=== PATIENT | female | born 1950 | race Caucasian/White ===

== ENCOUNTER 2017-06-20 19:25 | Emergency (ER) | payer MEDICARE, OTHER ==
[2017-06-20] MEDS ORDERED: ALBUTEROL NEB SOL 2.5MG/3ML 1 VIAL SOL NEB ONE (19:57)
[2017-06-20 20:05] VITALS: TEMP 99.8
[2017-06-20 20:14] LABS: BASOPHILS % (AUTO) 1 % (0-3); EOSINOPHILS % (AUTO) 0 % (0-9); HEMATOCRIT 33 % (35-47); MEAN CORPUSCULAR HGB CONC 36.5 gm/dl (32.0-36.0); MEAN CORPUSCULAR VOLUME 87 fL (81-99); MONOCYTES % (AUTO) 8.7 % (0-12); NEUTROPHILS % (AUTO) 69.5 % (37-80)
[2017-06-20] MEDS ORDERED: SODIUM CHLORIDE 0.9% 100 ML SOL IV SCH (20:15)
[2017-06-20] MEDS ORDERED: GUAIFENESIN 200 MG/10 ML SOL PO ONE (20:24)
[2017-06-20 20:31] LABS: CALCIUM 8.8 mg/dl (8.5-10.1); GLOM FILT RATE 53 mL/min (>60); MAGNESIUM 1.3 mg/dl (1.8-2.4); POTASSIUM 3.9 mMol/L (3.5-5.1); SODIUM 137 mMol/L (136-145)
[2017-06-20] MEDS ORDERED: ALBUTEROL NEB SOL 2.5MG/3ML 1 VIAL SOL ONE (20:37)
[2017-06-20] MEDS ORDERED: DM/GUAIFENESIN SYRUP 10 ML SYRP ONE (20:41)
[2017-06-20 23:26] VITALS: BP 120/72; PULSE 98; RESP 16; O2SAT 95
== END 2017-06-20 22:08 | disposition home or self-care (01) | DRG 153 ==
LOC: ED 19:25
DX: J06.9 Acute upper respiratory infection, unspecified (principal); E86.0 Dehydration; R52 Pain, unspecified; R00.0 Tachycardia, unspecified
CPT/HCPCS: 71020; 80048; 83735; 84100; 84484; 85025; 87804; 99284; J7603

== ENCOUNTER 2018-09-14 05:24 | Emergency (ER) | payer MEDICARE, BC ==
[2018-09-14 05:31] VITALS: TEMP 96.7
[2018-09-14] MEDS ORDERED: ONDANSETRON 4 MG ODT BU ONE (05:59)
[2018-09-14] MEDS ORDERED: APAP/HYDROCODONE 1 EACH TABLET PO ONE ×2 (06:00→09:42)
[2018-09-14] MEDS ORDERED: ONDANSETRON 4 MG ODT ONE (06:06)
[2018-09-14] MEDS ORDERED: APAP/HYDROCODONE 1 EACH TABLET ONE ×2 (06:07→09:41)
[2018-09-14 06:19] LABS: APPEARANCE,URINE Cloudy; BILIRUBIN,URINE 1+ (NEGATIVE); COLOR,URINE Brown; GLUCOSE, URINE (UA) 1+ (NEGATIVE); KETONES,URINE 2+ (NEGATIVE); LEUKOCYTE ESTERASE ,URINE NEGATIVE (NEGATIVE); NITRATE,URINE NEGATIVE (NEGATIVE); OCCULT BLOOD,URINE 3+ (NEG-TRACE); UROBILINOGEN,URINE 0.2 (0.2-1.0 EU)
[2018-09-14 06:33] LABS: BACTERIA UNABLE (< 1+); CRYSTALS UNABLE (0-3 AVE/HPF); EPITHELIAL CELLS UNABLE (SQUAMOUS); RBC,URINE TNTC (0-3AV/HPF); WBC,URINE UNABLE (0-5AV/HPF)
[2018-09-14 06:38] LABS: ICTOTEST,URINE NEGATIVE (NEGATIVE)
[2018-09-14 08:57] LABS: BASOPHILS % (AUTO) 1 % (0-3); EOSINOPHILS % (AUTO) 1 % (0-9); HEMATOCRIT 28 % (35-47); HEMOGLOBIN 9.6 gm/dl (12.0-15.5); LYMPHOCYTES % (AUTO) 46.6 % (10-50); MEAN CORPUSCULAR HEMOGLOBIN 31.6 pg (27.0-32.0); MEAN CORPUSCULAR HGB CONC 33.9 gm/dl (32.0-36.0); MEAN CORPUSCULAR VOLUME 93 fL (81-99); NEUTROPHILS % (AUTO) 46.4 % (37-80)
[2018-09-14 09:11] LABS: ALBUMIN 3.2 gm/dl (3.4-5.0); CALCIUM 8.5 mg/dl (8.5-10.1); CARBON DIOXIDE 22.2 mEq/L (21-32); CREATININE 1.16 mg/dl (0.60-1.00); POTASSIUM 4.9 mMol/L (3.5-5.1)
[2018-09-14 09:13] VITALS: RESP 16
[2018-09-14] MEDS ORDERED: DIAZEPAM 5 MG TAB PO ONE (09:18)
[2018-09-14] MEDS ORDERED: DIAZEPAM 5 MG TAB ONE (09:19)
[2018-09-14] MEDS ORDERED: PROCHLORPERAZINE EDISYLATE 5 MG/ML SOL ONE (09:40)
[2018-09-14] MEDS ORDERED: PROCHLORPERAZINE EDISYLATE 5 MG/ML SOL IV ONE (09:42)
[2018-09-14] MEDS ORDERED: SODIUM CHLORIDE 0.9% FLUSH 10 ML SOL IV PRN (09:48)
[2018-09-14] MEDS ORDERED: KETOROLAC TROMETHAMINE 30 MG/ML SOL ONE (11:29)
[2018-09-14] MEDS ORDERED: KETOROLAC TROMETHAMINE 30 MG/ML SOL IV ONE (11:39)
[2018-09-14 12:24] VITALS: BP 112/63; PULSE 78; O2SAT 99
== END 2018-09-14 11:55 | disposition home or self-care (01) | DRG 694 ==
LOC: ED 05:24
DX: N20.0 Calculus of kidney (principal); E11.9 Type 2 diabetes mellitus without complications; Z79.4 Long term (current) use of insulin
CPT/HCPCS: 36415; 74176; 80053; 81001; 85025; 87088; 96374; 96375; 99284; 99285; J0780; J1885; A9270-GY